=== PATIENT | male | born 1965 | race American Indian/Alaskan Native ===

== ENCOUNTER 2020-02-26 08:32 | Inpatient (IN) | payer OTHER ==
[2020-02-26 09:05] LABS: Basophils % (Auto) 0.6 % (0.0-1.8); Eosinophils # (Auto) 0.1 K/mm3 (0.0-0.4); Eosinophils % (Auto) 1.3 % (0.0-4.3); Hematocrit 44.1 % (35.5-45.6); Hemoglobin 14.7 gm/dl (11.8-15.2); Lymphocytes # (Auto) 1.7 K/mm3 (1.2-5.4); Lymphocytes % (Auto) 40.2 % (13.4-35.0); Mean Corpuscular HGB Conc 33 % (32-34); Mean Corpuscular Volume 86 fl (84-94); Monocytes # (Auto) 0.4 K/mm3 (0.0-0.8); Monocytes % (Auto) 10.6 % (0.0-7.3); Platelet Count 229 K/mm3 (140-440); Red Blood Count 5.14 M/mm3 (3.65-5.03); Red Cell Distribution Width 13.6 % (13.2-15.2)
[2020-02-26 09:14] LABS: INR 1.06 (0.87-1.13)
[2020-02-26 09:15] LABS: Partial Thromboplastin Time 27.5 Sec. (24.2-36.6)
[2020-02-26 09:38] LABS: BUN/Creatinine Ratio 9; Blood Urea Nitrogen 7 mg/dL (9-20); Calcium 9.2 mg/dL (8.4-10.2); Hemolysis Index 99
[2020-02-26] MEDS ORDERED: SODIUM CHLORIDE 0.9% 500 ML 500 ML ONE (09:46)
[2020-02-26] MEDS ORDERED: SODIUM CHLORIDE 0.9% 500 ML 500 ML IV SCH (10:00)
[2020-02-26] MEDS ORDERED: HEPARIN/NS 5000 UNIT/500ML 1,000 ML IR ONE (10:51)
[2020-02-26] MEDS ORDERED: LIDOCAINE 1%/EPINEPHRINE 1:100,000 VIAL (20 ML) INFILTRATI ONE (10:52)
[2020-02-26] MEDS ORDERED: SODIUM CHLORIDE 0.9% 500 ML 0 ML ONE (10:52)
--- NOTE | 2020-02-26 11:17 | Short Stay Summary ---
<TREVER JO - Last Filed: 02/26/20 11:15> Short Stay Documentation Date of service: 02/26/20 Narrative H&P: 54 year old male with history of traumatic injury to the right lower extremity with forklift injury requiring femoral-tibioperoneal trunk bypass. Bypass thrombosed and patient presented with 2 weeks of very short distance claudication. R/B/A discussed for thrombectomy/thrombolysis/recannalization. - History Principal diagnosis: Arterial thrombosis H&P: obtained from office - Allergies and Medications Current Medications: Allergies No Known Allergies Allergy (Unverified 02/26/20 08:13) Home Medications Medication Instructions Recorded Confirmed Last Taken Type Apixaban [Eliquis] 2.5 mg PO BID 02/26/20 02/26/20 02/23/20 History 2.5mg Celecoxib [celeBREX] 200 mg PO BID 02/26/20 02/26/20 01/26/20 History 200 mg Clopidogrel [Plavix] 75 mg PO QDAY 02/26/20 02/26/20 02/26/20 06:30 History Gabapentin [Neurontin] 1 tab PO TID PRN 02/26/20 02/26/20 01/27/20 History 600 mg Pantoprazole [Protonix TAB] 20 mg QDAY 02/26/20 02/26/20 02/26/20 06:30 History traMADoL [Ultram] 100 mg PO TID PRN 02/26/20 02/26/20 01/26/20 History 100 mg Active Medications Sodium Chloride (Nacl 0.9% 500 Ml) 500 mls @ 50 mls/hr IV DIRECT [facility]AS Last Admin: 02/26/20 10:04 Dose: 50 mls/hr Documented by: - Physical exam General appearance: mild distress (very short distance claudication (5 steps, near rest pain)) Lungs: Normal air movement Heart: Regular rate Gastrointestinal: normal Extremities: abnormal (cool right lower extremity with fasciotomy scars.) - Brief post op/procedure progress note Date of procedure: 02/26/20 Pre-op diagnosis: Thombosis of the right femoral-tibioperoneal bypass Post-op diagnosis: same - Disposition Condition at discharge: Stable Disposition: [id number] TO HOME OR SELFCARE Short Stay Discharge Plan Follow up with: TREVER JO MD [Staff Physician] - 14 Days Prescriptions: Apixaban [Eliquis] 5 mg PO BID #60 tablet Insulin NPH Hum/Reg Insulin Hm [Novolin 70-30 Flexpen] 8 unit SQ TIDAC #1 insuln.pen cilostazoL [Pletal] 100 mg PO BID #60 tablet <JOSE L YAO - Last Filed: 02/28/20 11:38> Short Stay Documentation - Allergies and Medications Current Medications: Allergies No Known Allergies Allergy (Unverified 02/26/20 08:13) Home Medications Medication Instructions Recorded Confirmed Last Taken Type Apixaban [Eliquis] 2.5 mg PO BID 02/26/20 02/26/20 02/23/20 History 2.5mg Celecoxib [celeBREX] 200 mg PO BID 02/26/20 02/26/20 01/26/20 History 200 mg Clopidogrel [Plavix] 75 mg PO QDAY 02/26/20 02/26/20 02/26/20 06:30 History Gabapentin [Neurontin] 1 tab PO TID PRN 02/26/20 02/26/20 01/27/20 History 600 mg Pantoprazole [Protonix TAB] 20 mg QDAY 02/26/20 02/26/20 02/26/20 06:30 History traMADoL [Ultram] 100 mg PO TID PRN 02/26/20 02/26/20 01/26/20 History 100 mg Apixaban [Eliquis] 5 mg PO BID #60 tablet 02/27/20 Unknown Rx Insulin NPH Hum/Reg Insulin Hm 8 unit SQ TIDAC #1 insuln.pen 02/27/20 Unknown Rx [Novolin 70-30 Flexpen] cilostazoL [Pletal] 100 mg PO BID #60 tablet 02/27/20 Unknown Rx Active Medications Acetaminophen (Tylenol) 650 mg PO Q4H PRN PRN Reason: Pain MILD(1-3)/Fever >100.5/BARRETT Hydrocodone Bitart/Acetaminophen ([place] 5/325) 2 each PO Q6H PRN PRN Reason: Pain, Moderate (4-6) Last Admin: 02/27/20 04:23 Dose: 2 each Documented by: Hydrocodone Bitart/Acetaminophen ([place] 5/325) 1 each PO Q6H PRN PRN Reason: Pain, Mild (1-3) Apixaban (Eliquis) 5 mg PO Q12HR [facility]; Protocol Cilostazol (Pletal) 100 mg PO BID [facility] Last Admin: 02/28/20 09:28 Dose: 100 mg Documented by: Clopidogrel Bisulfate (Plavix) 75 mg PO QDAY [facility] Last Admin: 02/28/20 10:08 Dose: 75 mg Documented by: Dextrose (D50w (25gm) Syringe) 0 ml IV Q30MIN PRN; Protocol PRN Reason: Hypoglycemia Diphenhydramine HCl (Benadryl) 25 mg IV Q4H PRN PRN Reason: Itching Last Admin: 02/26/20 23:52 Dose: 25 mg Documented by: Docusate Sodium (Colace) 100 mg PO BID [facility] Last Admin: 02/28/20 09:28 Dose: 100 mg Documented by: Gabapentin (Gabapentin) 600 mg PO TID PRN PRN Reason: Pain , Severe (7-10) Hydralazine HCl (Apresoline) 20 mg IV Q8HR PRN PRN Reason: Hypertension Hydromorphone HCl (Dilaudid) 0.5 mg IV Q3H PRN PRN Reason: Pain , Severe (7-10) Last Admin: 02/26/20 23:52 Dose: 0.5 mg Documented by: Sodium Chloride (Nacl 0.9% 500 Ml) 500 mls @ 50 mls/hr IV DIRECT [facility]AS Last Admin: 02/26/20 10:04 Dose: 50 mls/hr Documented by: Sodium Chloride (Nacl 0.9% 1000 Ml) 1,000 mls @ 30 mls/hr IV DIRECT [facility]AS Heparin Sodium/Sodium Chloride (Heparin/ 0.45% Nacl-25,000 Unit/500 Ml) 25,000 unit in 500 mls @ 30 mls/hr IV TITR [facility]; Protocol Last Titration: 02/27/20 20:45 Dose: 1,500 units/hr, 30 mls/hr Documented by: Insulin Human Lispro (Humalog) 0 unit SUB-Q ACHS [facility]; Protocol Last Admin: 02/28/20 08:02 Dose: 2 unit Documented by: Morphine Sulfate (Morphine) 2 mg IV Q4H PRN PRN Reason: Pain, Moderate (4-6) Last Admin: 02/27/20 18:43 Dose: 2 mg Documented by: Ondansetron HCl (Zofran) 4 mg IV Q8H PRN PRN Reason: Nausea Pantoprazole Sodium (Protonix) 20 mg PO QDAY [facility] Last Admin: 02/28/20 09:28 Dose: 20 mg Documented by: Sodium Chloride (Sodium Chloride Flush Syringe 10 Ml) 10 ml IV BID [facility] Last Admin: 02/28/20 09:29 Dose: 10 ml Documented by: Sodium Chloride (Sodium Chloride Flush Syringe 10 Ml) 10 ml IV PRN PRN PRN Reason: LINE FLUSH Short Stay Discharge Plan Activity: other (No strenuous activity for 24 hours) Wound: remove dressing (24 hours), other (Once the dressing is removed it is okay to wash the left groin wound with soap and water but do not soak in water for 2 weeks.)
[2020-02-26] MEDS: fentaNYL 100 MCG/2 ML INJ ONE ×2 (11:35→11:44)
[2020-02-26] MEDS: MIDAZOLAM 2 MG/2 ML INJ ONE ×2 (11:35→11:44)
[2020-02-26] MEDS ORDERED: fentaNYL 100 MCG/2 ML INJ ONE (11:46)
[2020-02-26] MEDS ORDERED: diphenhydrAMINE 50 MG/ML VIAL ONE ×2 (11:46→16:25)
[2020-02-26] MEDS ORDERED: MIDAZOLAM 2 MG/2 ML INJ ONE (11:46)
[2020-02-26] MEDS: HEPARIN 10,000 UNITS/10 ML VIAL ONE ×2 (11:55→12:15)
[2020-02-26] MEDS ORDERED: WATER FOR INJ Sterile (PF) 10 ML ONE (12:09)
[2020-02-26] MEDS ORDERED: ALTEPLASE 2 MG INJ ONE (12:10)
[2020-02-26] MEDS ORDERED: SODIUM CHLORIDE 0.9% 1000 ML 1,000 ML IV SCH (12:15)
[2020-02-26] MEDS ORDERED: SODIUM CHLORIDE 0.9% 1000 ML 1,000 ML EKOSCLUMEN SCH (12:15)
[2020-02-26] MEDS ORDERED: SODIUM CHLORIDE 0.9% 1000 ML 1,000 ML SHEATH SCH (12:15)
[2020-02-26] MEDS ORDERED: HEPARIN/ 0.45% NACL DRIP 25,000 UNIT/500 ML BAG ONE (12:17)
[2020-02-26] MEDS ORDERED: SODIUM CHLORIDE 0.9% 1000 ML 1,000 ML ONE (12:17)
[2020-02-26] MEDS ORDERED: MORPHINE 4 MG/1 ML INJ IV PRN (12:23)
[2020-02-26] MEDS ORDERED: ONDANSETRON 4 MG/2 ML INJ IV PRN ×2 (12:23→13:00)
[2020-02-26] MEDS ORDERED: HYDROcodone/ACETAMINOPHEN 5-325 MG TAB PO PRN ×2 (12:23→13:00)
[2020-02-26] MEDS ORDERED: ACETAMINOPHEN 325 MG TAB PO PRN ×2 (12:23→13:00)
[2020-02-26] MEDS ORDERED: ALTEPLASE 20 MG in SODIUM CHLORIDE 0.9% 500 ML 500 ML EKOSDLUMEN SCH (12:30)
[2020-02-26] MEDS ORDERED: traMADol 50 MG TAB PO PRN (12:31)
--- NOTE | 2020-02-26 12:49 | Event Note ---
Date: 02/26/20 H&P on chart from office.
--- NOTE | 2020-02-26 12:52 | Operative Report ---
Operative Report Operative Report: EXAM: 1. Ultrasound guided access of the left common femoral artery 2. Angiography of the left lower extremity 3. Selection of the abdominal aorta with angiography 4. Third order selection of the right superficial femoral artery and above with angiography 5. Selection of the right tibioperoneal trunk, peroneal artery, and posterior tibial artery with angiography 6. Fluoroscopic guided placement of a 30 cm x 136 cm EKOS thrombolytic catheter across the right femoral-tibioperoneal trunk bypass graft DATE: 02/26/2020 BURIAL AGENT: TREVER JO MD INDICATION: Thrombosed right femoral distal bypass graft with development of extremely short distance claudication/near rest pain equivalent who presents for treatment. MEDICATIONS: Please see nursing report for full details. DEVICES: 30 cm x 136 cm EKOS thrombolytic catheter CONTRAST: Please see catheter report for full details. PROCEDURE: The risks, benefits, and alternatives were discussed with the patient; written informed consent was obtained. Ultrasound was used to evaluate the left common femoral artery which was patent. Under direct ultrasound guidance, the left common femoral artery was accessed with a 21-gauge micropuncture needle. 0.018 inch wire was passed into the needle and into the aorta. Needle was exchanged for transitional dilator. Wire was exchanged for 0.035 inch wire. Transitional dilator was exchanged for a 5 [place] sheath. Digital subtraction angiography was performed demonstrating an appropriate puncture when accounting for patient's body habitus, above the bifurcation, and below the inferior epigastric artery. The left common femoral artery, profundofemoral artery, superficial femoral artery and external iliac artery were patent. The abdominal aorta was selected and digital subtraction angiography was performed demonstrating patency of the bilateral common iliac arteries, internal iliac arteries, external iliac arteries, and abdominal aorta. The right external iliac artery was selected and the right superficial femoral artery was selected and digital subtraction angiography was performed de monstrating patency of the right common femoral artery, profundofemoral artery, and right proximal and mid superficial femoral artery. The distal most superficial femoral artery was occluded with thrombus in the femoral tibial peroneal trunk bypass was occluded. The [place] popliteal artery had intermittent areas of flow. The tibioperoneal trunk was patent. The posterior tibial artery and peroneal artery were patent with sluggish flow. The distal peroneal artery provided flow into the dorsalis pedis through the anterior communicating artery at the level of the ankle. Anterior tibial artery had poor flow within it. The patient was heparinized. Sheath was exchanged for 6 [place] 45 cm [place] destination positioned in the right proximal superficial femoral artery. Angled catheter and wire were used to cross the femoral distal bypass into the tibioperoneal trunk and digital subtraction angiography was performed confirming position. The posterior tibial artery was selected and digital subtraction angiography was performed confirming the above-mentioned findings. The peroneal artery was selected and digital subtraction angiography was performed confirming the above-mentioned findings. 0.035 inch wire was passed into the peroneal artery and the catheter was then exchanged for a thrombolytic catheter as referenced above. 4 mg of TPA was used to prime the catheter. 1500 units of heparin was used to prime the sheath. The catheter and sheath were then secured to the patient with 2-0 Ethilon, and a pressure dressing was created. Thrombolytic catheter was then connected to the EKOS thrombolytic unit. Patient tolerated the procedure well. No immediate postprocedural complications. FINDINGS: Please see procedure note above. IMPRESSION: Successful placement of thrombolytic catheter for overnight thrombolysis. Patient will be brought back tomorrow to the Investment Strategist.
--- NOTE | 2020-02-26 12:52 | Post Operative Note ---
Date of procedure: 02/26/20 Pre-op diagnosis: Thrombosed RLE bypass graft Post-op diagnosis: same Findings: Thrombosed right distal SFA to tibioperoneal trunk bypass graft. Procedure: 1. Ultrasound guided access of the left common femoral artery 2. Angiography of the left lower extremity 3. Selection of the abdominal aorta with angiography 4. Third order selection of the right superficial femoral artery and above with angiography 5. Selection of the right tibioperoneal trunk, peroneal artery, and posterior tibial artery with angiography 6. Fluoroscopic guided placement of a 30 cm x 136 cm EKOS thrombolytic catheter across the right femoral-tibioperoneal trunk bypass graft Anesthesia: local (w/ conscious sedation) Surgeon: TREVER JO Estimated blood loss: minimal Condition: stable Disposition: ICU
[2020-02-26] MEDS ORDERED: HEPARIN/ 0.45% NACL DRIP 25,000 UNIT/500 ML BAG SHEATH SCH (13:00)
[2020-02-26] MEDS ORDERED: MORPHINE 2 MG/1 ML INJ IV PRN (13:00)
[2020-02-26] MEDS ORDERED: GABAPENTIN 300 MG CAP PO PRN (14:00)
[2020-02-26] MEDS: PANTOPRAZOLE 20 MG TAB PO SCH (14:11)
[2020-02-26] MEDS ORDERED: HYDROcodone/ACETAMINOPHEN 5-325 MG TAB ONE (14:21)
[2020-02-26] MEDS: HYDROcodone/ACETAMINOPHEN 5-325 MG TAB PO PRN ×2 (14:24→20:52)
[2020-02-26] MEDS ORDERED: HYDROmorphone 1 MG/1 ML INJ ONE ×2 (14:47→18:01)
[2020-02-26] MEDS: HYDROmorphone 1 MG/1 ML INJ IV PRN ×3 (14:58→23:52)
[2020-02-26] MEDS: diphenhydrAMINE 50 MG/ML VIAL IV PRN ×2 (16:33→23:52)
[2020-02-26] MEDS: DOCUSATE SODIUM 100 MG CAP PO SCH ×2 (20:24→21:13)
[2020-02-26 21:11] LABS: Hematocrit 44.7 % (35.5-45.6); Hemoglobin 14.8 gm/dl (11.8-15.2); Mean Corpuscular HGB Conc 33 % (32-34); Mean Corpuscular Volume 88 fl (84-94); Platelet Count 215 K/mm3 (140-440); Red Blood Count 5.07 M/mm3 (3.65-5.03); Red Cell Distribution Width 13.7 % (13.2-15.2)
[2020-02-26 21:17] LABS: INR 1.14 (0.87-1.13)
[2020-02-26 21:28] LABS: BUN/Creatinine Ratio 9; Blood Urea Nitrogen 7 mg/dL (9-20); Calcium 8.9 mg/dL (8.4-10.2); Hemolysis Index 11
[2020-02-26] MEDS ORDERED: DEXTROSE 50% IN WATER (25GM) 50 ML SYRINGE IV PRN (23:13)
[2020-02-26 23:14] LABS: Basophils % (Manual) 0 % (0.0-1.8); Eosinophils % (Manual) 0 % (0.0-4.3); Total Cells Counted 100
[2020-02-26 23:15] LABS: Platelet Estimate Consistent w Auto; RBC Morphology Normal
[2020-02-27 00:02] LABS: Basophils % (Auto) 0.5 % (0.0-1.8); Eosinophils % (Auto) 0.6 % (0.0-4.3); Hemoglobin 13.9 gm/dl (11.8-15.2); Lymphocytes # (Auto) 1.8 K/mm3 (1.2-5.4); Lymphocytes % (Auto) 27.8 % (13.4-35.0); Mean Corpuscular HGB Conc 33 % (32-34); Mean Corpuscular Volume 87 fl (84-94); Monocytes # (Auto) 0.5 K/mm3 (0.0-0.8); Monocytes % (Auto) 8.2 % (0.0-7.3); Platelet Count 216 K/mm3 (140-440); Red Blood Count 4.83 M/mm3 (3.65-5.03); Red Cell Distribution Width 13.8 % (13.2-15.2)
[2020-02-27] MEDS: HYDROcodone/ACETAMINOPHEN 5-325 MG TAB PO PRN (04:23)
[2020-02-27 05:39] LABS: Basophils % (Auto) 0.4 % (0.0-1.8); Eosinophils # (Auto) 0.1 K/mm3 (0.0-0.4); Eosinophils % (Auto) 1.3 % (0.0-4.3); Hematocrit 42.7 % (35.5-45.6); Mean Corpuscular HGB Conc 33 % (32-34); Mean Corpuscular Volume 87 fl (84-94); Monocytes # (Auto) 0.5 K/mm3 (0.0-0.8); Monocytes % (Auto) 9.8 % (0.0-7.3); Platelet Count 206 K/mm3 (140-440); Red Blood Count 4.92 M/mm3 (3.65-5.03); Red Cell Distribution Width 13.6 % (13.2-15.2)
[2020-02-27 05:53] LABS: BUN/Creatinine Ratio 8; Blood Urea Nitrogen 7 mg/dL (9-20); Calcium 8.7 mg/dL (8.4-10.2); Hemolysis Index 5
[2020-02-27] MEDS ORDERED: INSULIN LISPRO 100 UNIT/ML VIAL 3 mL SUB-Q SCH (07:30)
[2020-02-27] MEDS: INSULIN LISPRO 100 UNIT/ML VIAL 3 mL SUB-Q SCH ×4 (07:40→21:14)
[2020-02-27] MEDS ORDERED: SODIUM CHLORIDE 0.9% 250ML 250 ML ONE (08:13)
[2020-02-27] MEDS ORDERED: LIDOCAINE 1%/EPINEPHRINE 1:100,000 VIAL (20 ML) INFILTRATI ONE ×2 (08:14→09:35)
[2020-02-27] MEDS ORDERED: HEPARIN/NS 5000 UNIT/500ML 1,000 ML IR ONE (08:14)
[2020-02-27] MEDS ORDERED: fentaNYL 100 MCG/2 ML INJ ONE ×3 (08:15→09:40)
[2020-02-27] MEDS: MIDAZOLAM 2 MG/2 ML INJ ONE ×2 (08:34→09:09)
[2020-02-27] MEDS: fentaNYL 100 MCG/2 ML INJ ONE (08:34)
[2020-02-27] MEDS: HEPARIN 10,000 UNITS/10 ML VIAL ONE ×3 (08:35→08:50)
[2020-02-27] MEDS ORDERED: ceFAZolin/Water 2 GM/20 ML 2 GM/20 ML SYRINGE IV ONE (08:54)
[2020-02-27] MEDS ORDERED: hydrALAZINE 20 MG/1 ML INJ ONE (08:58)
[2020-02-27] MEDS ORDERED: MIDAZOLAM 2 MG/2 ML INJ ONE ×2 (09:27→09:40)
[2020-02-27] MEDS ORDERED: diphenhydrAMINE 50 MG/ML VIAL ONE (10:03)
--- NOTE | 2020-02-27 10:32 | Operative Report ---
Operative Report Operative Report: EXAM: 1. Removal of arterial thrombolytic catheter from the right lower extremity 2. Angiography of the right lower extremity 3. Selection of the peroneal artery with angiography of the right lower extremity 4. Fluoroscopic guided placement of a 6 mm spider EPD in the right tibioperoneal trunk 5. Angioplasty of the right tibioperoneal trunk with a 5 mm x 100 mm angiosculpt balloon, 5 mm x 40 mm pepito balloon and 5 mm x 80 mm iNPACT balloon 6. Angioplasty of the right distal superficial femoral artery with a 7 mm x 40 mm angioscupt balloon 7. Capture of the embolic protection device 8. Angioplasty of the tibioperoneal trunk with a 5 mm x 40 mm pepito angioplasty balloon 9. Closure of the left common femoral artery with a 6 Fr proglide DATE: 02/27/2020 [employer]ACE OPERATIONS: TREVER JO MD INDICATION: Next day after thrombolytic catheter placement for femoral tibioperoneal trunk bypass occlusion. MEDICATIONS: Please see nursing report for full details. DEVICES: 5 mm x 100 mm angiosculpt 5 mm x 40 mm Pepito angioplasty balloon 5 mm x 80 mm iNPACT balloon 7 mm x 40 mm angiosculpt 6 mm spider embolic protection device CONTRAST: Please see Welfare Manager report for full details PROCEDURE: The risks, benefits, and alternatives were discussed with the patient; written informed consent was obtained. The patient was transferred from the ICU to the angiography suite in stable condition. The left groin and thrombolytic catheter was prepped and draped in sterile fashion. Fluoroscopy was used and the catheter was in unchanged position. Thrombolytic catheter was removed over a wire and digital subtraction angiography was performed after selection of the tibioperoneal trunk demonstrating patency of the posterior tibial artery and peroneal artery with flow into the dorsalis pedis through the anterior communicating artery. Digital subtraction angiography was performed through the sheath demonstrating patency of the proximal and mid superficial femoral artery with resolution of thrombus in the distal superficial femoral artery with a 40% narrowing at the distal superficial femoral artery as it enters the bypass. The bypass is patent except for the distalmost portion of the bypass which has a minimal amount of residual clot. The tibioperoneal trunk has a 40% to 50% narrowing as the bypass enters it. The outflow of the tibioperoneal trunk is patent as described above. There are islands of popliteal artery which are still patent with areas of occlusion. Anterior tibial artery has minimal flow within it. 6 mm spider embolic protection device was deployed in the distal tibioperoneal trunk. 5 mm x 100 mm cutting balloon was used to perform cutting angioplasty of the proximal tibioperoneal trunk and distal portion of the bypass. This was then followed with a 5 x 40 mm angioplasty balloon to perform angioplasty of the tibioperoneal trunk. Then a 5 mm x 80 mm iNPACT balloon was used to perform angioplasty of this area. 7 mm x 40 mm cutting balloon was used to perform angioplasty of the distal superficial femoral artery. Digital subtraction angiography demonstrated sluggish flow in the peroneal artery with patency of the rest of the vessel due to debris in the embolic protection device. The embolic protection device was retrieved and the sheath hub was then removed and flushed. Repeat angiography was performed. Digital subtraction angiography was performed demonstrating patency of the distal superficial femoral artery, distal femoral to tibioperoneal trunk bypass, and proximal tibioperoneal trunk. There is a tiny dissection flap in the midportion of the tibioperoneal trunk which was not flow-limiting. The outflow into the peroneal artery and posterior tibial artery are widely patent with the vessels widely patent. 5 mm x 40 mm angioplasty balloon was used to perform angioplasty of the midportion of the tibial peroneal trunk for 4 minutes. Digital subtraction angiography demonstrated near resolution of the tiny dissection flap which was not flow-limiting. At this point, all wires, catheters, and sheaths were retracted to the left external iliac artery. Digital subtraction angiography was performed demonstrating, an appropriate puncture, immediately above the bifurcation and below the inferior epigastric artery. Levy wire was then passed into the abdominal aorta and the sheath was exchanged for a 6 Korean pro glide which was then used to close the arteriotomy achieving immediate hemostasis. Sterile dressing applied. Pressure dressing applied. Patient tolerated the procedure well. No immediate postprocedural complication. FINDINGS: Please see procedure note above. IMPRESSION: 1. Successful thrombolytic catheter removal of the right lower extremity arterial system. 2. Successful angioplasty of the distal superficial femoral artery. 3. Successful angioplasty of the tibioperoneal trunk.
--- NOTE | 2020-02-27 10:35 | Event Note ---
Date: 02/27/20 Patient underwent successful thrombolysis overnight and required angioplasty/treatment of the distal superficial femoral artery and tibioperoneal trunk. His right lower extremity is warm, well-perfused, with a palpable dorsalis pedis and posterior tibial pulse. Pressure dressing applied to the left common femoral artery after successful closure. Resume heparin drip until tomorrow at which point patient can be converted to Eliquis 5 mg p.o. twice daily. Restarting Plavix today. On Protonix. Starting cilostazol today to assist with secondary patency. Can remove pressure dressing tomorrow morning. Ordered hemoglobin A1c due to elevated blood sugar which demonstrated hemoglobin A1c of 11.5. Patient has diabetes. Explained this to patient. He will need some diabetic regimen. Appreciate medical assistance.
[2020-02-27] MEDS: DOCUSATE SODIUM 100 MG CAP PO SCH ×2 (10:49→21:10)
[2020-02-27] MEDS: PANTOPRAZOLE 20 MG TAB PO SCH (10:49)
[2020-02-27] MEDS ORDERED: HEPARIN/ 0.45% NACL DRIP 25,000 UNIT/500 ML BAG IV SCH (11:00)
[2020-02-27] MEDS ORDERED: CLOPIDOGREL 75 MG TAB PO ONE (11:00)
[2020-02-27] MEDS ORDERED: CLOPIDOGREL 75 MG TAB PO SCH (11:00)
[2020-02-27] MEDS: CILOSTAZOL 100 MG TAB PO SCH ×2 (12:04→21:10)
--- NOTE | 2020-02-27 12:18 | Consultation ---
History of Present Illness - Reason for Consult Consult date: 02/26/20 Medical Management Requesting physician: TREVER JO - History of Present Illness 54 YO Male with PVD, Obesity, GERD admitted for elective vascular surgical procedure. Consult placed by Dr. Jo for medical management. Patient seen and evaluated in his room. Patient resting comfortably. Patient denies fever, chills, chest pain, palpitations, productive cough, skin rash, recent ill contacts, or known exposure to COVID-19. No reported nursing events. Past History Past Medical History: other (See HPI) Past Surgical History: Other (Vascular bypass surgery) Social history: , smoking. denies: alcohol abuse, prescription drug abuse Family history: hypertension Medications and Allergies Allergies Allergy/AdvReac Type Severity Reaction Status Date / Time No Known Allergies Allergy Unverified 02/26/20 08:13 Home Medications Medication Instructions Recorded Confirmed Last Taken Type Apixaban [Eliquis] 2.5 mg PO BID 02/26/20 02/26/20 02/23/20 History 2.5mg Celecoxib [celeBREX] 200 mg PO BID 02/26/20 02/26/20 01/26/20 History 200 mg Clopidogrel [Plavix] 75 mg PO QDAY 02/26/20 02/26/20 02/26/20 06:30 History Gabapentin [Neurontin] 1 tab PO TID PRN 02/26/20 02/26/20 01/27/20 History 600 mg Pantoprazole [Protonix TAB] 20 mg QDAY 02/26/20 02/26/20 02/26/20 06:30 History traMADoL [Ultram] 100 mg PO TID PRN 02/26/20 02/26/20 01/26/20 History 100 mg Apixaban [Eliquis] 5 mg PO BID #60 tablet 02/27/20 Unknown Rx cilostazoL [Pletal] 100 mg PO BID #60 tablet 02/27/20 Unknown Rx Active Meds: Active Medications Acetaminophen (Tylenol) 650 mg PO Q4H PRN PRN Reason: Pain MILD(1-3)/Fever >100.5/BARRETT Hydrocodone Bitart/Acetaminophen ([place] 5/325) 2 each PO Q6H PRN PRN Reason: Pain, Moderate (4-6) Last Admin: 02/27/20 04:23 Dose: 2 each Documented by: Hydrocodone Bitart/Acetaminophen ([place] 5/325) 1 each PO Q6H PRN PRN Reason: Pain, Mild (1-3) Cilostazol (Pletal) 100 mg PO BID [facility] Last Admin: 02/27/20 12:04 Dose: 100 mg Documented by: Clopidogrel Bisulfate (Plavix) 75 mg PO QDAY [facility] Dextrose (D50w (25gm) Syringe) 0 ml IV Q30MIN PRN; Protocol PRN Reason: Hypoglycemia Diphenhydramine HCl (Benadryl) 25 mg IV Q4H PRN PRN Reason: Itching Last Admin: 02/26/20 23:52 Dose: 25 mg Documented by: Docusate Sodium (Colace) 100 mg PO BID [facility] Last Admin: 02/27/20 10:49 Dose: 100 mg Documented by: Gabapentin (Gabapentin) 600 mg PO TID PRN PRN Reason: Pain , Severe (7-10) Hydromorphone HCl (Dilaudid) 0.5 mg IV Q3H PRN PRN Reason: Pain , Severe (7-10) Last Admin: 02/26/20 23:52 Dose: 0.5 mg Documented by: Sodium Chloride (Nacl 0.9% 500 Ml) 500 mls @ 50 mls/hr IV DIRECT CHAS Last Admin: 02/26/20 10:04 Dose: 50 mls/hr Documented by: Sodium Chloride (Nacl 0.9% 1000 Ml) 1,000 mls @ 30 mls/hr IV DIRECT CHAS Heparin Sodium/Sodium Chloride (Heparin/ 0.45% Nacl-25,000 Unit/500 Ml) 25,000 unit in 500 mls @ 30 mls/hr IV TITR CHAS; Protocol Last Admin: 02/27/20 10:47 Dose: 1,500 units/hr, 30 mls/hr Documented by: Insulin Human Lispro (Humalog) 0 unit SUB-Q ACHS [facility]; Protocol Morphine Sulfate (Morphine) 2 mg IV Q4H PRN PRN Reason: Pain, Moderate (4-6) Ondansetron HCl (Zofran) 4 mg IV Q8H PRN PRN Reason: Nausea Pantoprazole Sodium (Protonix) 20 mg PO QDAY [facility] Last Admin: 02/27/20 10:49 Dose: 20 mg Documented by: Sodium Chloride (Sodium Chloride Flush Syringe 10 Ml) 10 ml IV BID [facility] Last Admin: 02/27/20 10:51 Dose: 10 ml Documented by: Sodium Chloride (Sodium Chloride Flush Syringe 10 Ml) 10 ml IV PRN PRN PRN Reason: LINE FLUSH Review of Systems Constitutional: no weight loss, no weight gain, no chills, no sweats Ears, nose, mouth and throat: no ear pain, no tinnitis, no decreased hearing, no nose pain, no nasal congestion Cardiovascular: no chest pain, no orthopnea, no rapid/irregular heart beat, no edema, no syncope Respiratory: no cough, no excessive sputum, no hemoptysis Gastrointestinal: no nausea, no vomiting, no diarrhea, no constipation, no change in bowel habits Genitourinary Male: no hematuria, no flank pain, no urinary frequency, no urinary hesitancy Rectal: no pain, no incontinence, no bleeding Musculoskeletal: no neck stiffness, no shooting arm pain, no arm numbness/tingling, no shooting leg pain, no leg numbness/tingling Integumentary: no rash, no pruritis, no redness, no sores, no wounds Neurological: no head injury, no transient paralysis, no weakness, no parathesias, no numbness, no tingling, no seizures Psychiatric: no anxiety, no memory loss, no sleep disturbances, no insomnia, no hypersomnia, no change in libido, no suicidal ideation Endocrine: no cold intolerance, no polyphagia, no excessive thirst, no polyuria Hematologic/Lymphatic: no easy bruising, no easy bleeding Allergic/Immunologic: no urticaria, no allergic rhinitis Exam - Constitutional Vitals: Temp Pulse Resp BP Pulse Ox 97.8 F 65 15 154/87 98 02/27/20 08:00 02/27/20 06:30 02/27/20 06:30 02/27/20 06:30 02/27/20 06:30 General appearance: Present: no acute distress, well-nourished - EENT Eyes: Present: PERRL ENT: hearing intact, clear oral mucosa - Neck Neck: Present: supple, normal ROM - Respiratory Respiratory effort: normal Respiratory: bilateral: CTA - Cardiovascular Heart Sounds: Present: S1 & S2. Absent: rub, click - Extremities Extremities: pulses symmetrical, No edema Peripheral Pulses: within normal limits - Abdominal General gastrointestinal: Present: soft, non-tender, non-distended, normal bowel sounds Male genitourinary: Present: normal - Integumentary Integumentary: Present: clear, warm, dry - Musculoskeletal Musculoskeletal: gait normal, strength equal bilaterally - Psychiatric Psychiatric: appropriate mood/affect, intact judgment & insight - Neurologic Neurologic: CNII-XII intact, moves all extremities Results - Labs CBC & Chem 7: 02/27/20 13:41 02/27/20 05:25 Labs: Abnormal lab results 02/26/20 02/26/20 02/26/20 Range/Units 19:20 20:30 20:30 RBC 5.07 H (3.65-5.03) M/mm3 Lymph % (Auto) (13.4-35.0) % [place] % (Auto) (0.0-7.3) % Seg Neuts % (Manual) 78.0 H (40.0-70.0) % INR 1.14 H (0.87-1.13) Fibrinogen (211-480) mg/dl Heparin Anti-Xa Level 0.10 L (0.3-0.7) U.I./ml BUN (9-20) mg/dL Glucose (75-100) mg/dL POC Glucose (70-105) mg/dL Hemoglobin A1c (4-6) % 02/26/20 02/26/20 02/26/20 Range/Units 20:30 23:30 23:30 RBC (3.65-5.03) M/mm3 Lymph % (Auto) (13.4-35.0) % [place] % (Auto) 8.2 H (0.0-7.3) % Seg Neuts % (Manual) (40.0-70.0) % INR (0.87-1.13) Fibrinogen (211-480) mg/dl Heparin Anti-Xa Level 0.10 L (0.3-0.7) U.I./ml BUN 7 L (9-20) mg/dL Glucose 331 H (75-100) mg/dL POC Glucose (70-105) mg/dL Hemoglobin A1c (4-6) % 02/26/20 02/27/20 02/27/20 Range/Units 23:30 00:53 05:25 RBC (3.65-5.03) M/mm3 Lymph % (Auto) (13.4-35.0) % [place] % (Auto) (0.0-7.3) % Seg Neuts % (Manual) (40.0-70.0) % INR (0.87-1.13) Fibrinogen 199 L (211-480) mg/dl Heparin Anti-Xa Level (0.3-0.7) U.I./ml BUN 7 L (9-20) mg/dL Glucose 224 H (75-100) mg/dL POC Glucose 254 H (70-105) mg/dL Hemoglobin A1c (4-6) % 02/27/20 02/27/20 02/27/20 Range/Units 05:25 05:25 05:25 RBC (3.65-5.03) M/mm3 Lymph % (Auto) 38.0 H (13.4-35.0) % [place] % (Auto) 9.8 H (0.0-7.3) % Seg Neuts % (Manual) (40.0-70.0) % INR (0.87-1.13) Fibrinogen 196 L (211-480) mg/dl Heparin Anti-Xa Level 0.10 L (0.3-0.7) U.I./ml BUN (9-20) mg/dL Glucose (75-100) mg/dL POC Glucose (70-105) mg/dL Hemoglobin A1c 11.5 H (4-6) % 02/27/20 Range/Units 05:42 RBC (3.65-5.03) M/mm3 Lymph % (Auto) (13.4-35.0) % [place] % (Auto) (0.0-7.3) % Seg Neuts % (Manual) (40.0-70.0) % INR (0.87-1.13) Fibrinogen (211-480) mg/dl Heparin Anti-Xa Level (0.3-0.7) U.I./ml BUN (9-20) mg/dL Glucose (75-100) mg/dL POC Glucose 210 H (70-105) mg/dL Hemoglobin A1c (4-6) % Assessment and Plan - Patient Problems (1) Peripheral vascular disease Current Visit: Yes Status: Acute Plan to address problem: Patient status post surgical intervention, continue supportive care. Resume anticoagulation as per primary team (2) Obesity (BMI 35.0-39.9 without comorbidity) Current Visit: Yes Status: Acute Plan to address problem: Balanced diet, increase physical activity at discharge. Pulmonary follow-up as outpatient for sleep study (3) Gastroesophageal reflux disease Current Visit: Yes Status: Acute Qualifiers: Esophagitis presence: without esophagitis Qualified Code(s): K21.9 - Gastro-esophageal reflux disease without esophagitis Plan to address problem: PPI therapy, supportive care
[2020-02-27] MEDS ORDERED: hydrALAZINE 20 MG/1 ML INJ IV PRN (12:19)
--- NOTE | 2020-02-27 14:21 | Discharge Summary ---
Providers - Providers Date of Admission: 02/26/20 12:23 Date of discharge: 02/28/20 Attending physician: TREVER JO 02/26/20 12:23 Consult to Physician [CONS] Routine Comment: Consulting Provider: URMILA REYES Physician Instructions: Reason For Exam: medical management 02/26/20 14:40 Consult to Physician [CONS] Routine Comment: Consulting Provider: HILLARY CRESPO Physician Instructions: Reason For Exam: Pt going to ICU Primary care physician: [employer] Hospitalization Reason for admission: Thrombosed right distal superficial femoral artery to tibioperoneal bypass Condition: Stable Procedures: EXAM: 1. Ultrasound guided access of the left common femoral artery 2. Angiography of the left lower extremity 3. Selection of the abdominal aorta with angiography 4. Third order selection of the right superficial femoral artery and above with angiography 5. Selection of the right tibioperoneal trunk, peroneal artery, and posterior tibial artery with angiography 6. Fluoroscopic guided placement of a 30 cm x 136 cm EKOS thrombolytic catheter across the right femoral-tibioperoneal trunk bypass graft DATE: 02/26/2020 RAW SAMPLER: TREVER JO MD INDICATION: Thrombosed right femoral distal bypass graft with development of extremely short distance claudication/near rest pain equivalent who presents for treatment. MEDICATIONS: Please see nursing report for full details. DEVICES: 30 cm x 136 cm EKOS thrombolytic catheter CONTRAST: Please see catheter report for full details. PROCEDURE: The risks, benefits, and alternatives were discussed with the patient; written informed consent was obtained. Ultrasound was used to evaluate the left common femoral artery which was patent. Under direct ultrasound guidance, the left common femoral artery was accessed with a 21-gauge micropuncture needle. 0.018 inch wire was passed into the needle and into the aorta. Needle was exchanged for transitional dilator. Wire was exchanged for 0.035 inch wire. Transitional dilator was exchanged for a 5 Romanian sheath. Digital subtraction angiography was performed demonstrating an appropriate puncture when accounting for patient's body habitus, above the bifurcation, and below the inferior epigastric artery. The left common femoral artery, profundofemoral artery, superficial femoral artery and external iliac artery were patent. The abdominal aorta was selected and digital subtraction angiography was performed demonstrating patency of the bilateral common iliac arteries, internal iliac arteries, external iliac arteries, and abdominal aorta. The right external iliac artery was selected and the right superficial femoral artery was selected and digital subtraction angiography was performed demonstrating patency of the right common femoral artery, profundofemoral artery, and right proximal and mid superficial femoral artery. The distal most superficial femoral artery was occluded with thrombus in the femoral tibial peroneal trunk bypass was occluded. The [place] popliteal artery had intermittent areas of flow. The tibioperoneal trunk was patent. The posterior tibial artery and peroneal artery were patent with sluggish flow. The distal peroneal artery provided flow into the dorsalis pedis through the anterior communicating artery at the level of the ankle. Anterior tibial artery had poor flow within it. The patient was heparinized. Sheath was exchanged for 6 Romanian 45 cm [place] destination positioned in the right proximal superficial femoral artery. Angled catheter and wire were used to cross the femoral distal bypass into the tibioperoneal trunk and digital subtraction angiography was performed confirming position. The posterior tibial artery was selected and digital subtraction angiography was performed confirming the above-mentioned findings. The peroneal artery was selected and digital subtraction angiography was performed confirmin g the above-mentioned findings. 0.035 inch wire was passed into the peroneal artery and the catheter was then exchanged for a thrombolytic catheter as referenced above. 4 mg of TPA was used to prime the catheter. 1500 units of heparin was used to prime the sheath. The catheter and sheath were then secured to the patient with 2-0 Ethilon, and a pressure dressing was created. Thrombolytic catheter was then connected to the EKOS thrombolytic unit. Patient tolerated the procedure well. No immediate postprocedural complications. FINDINGS: Please see procedure note above. IMPRESSION: Successful placement of thrombolytic catheter for overnight thrombolysis. Patient will be brought back tomorrow to the [facility] [employer]. EXAM: 1. Removal of arterial thrombolytic catheter from the right lower extremity 2. Angiography of the right lower extremity 3. Selection of the peroneal artery with angiography of the right lower extremity 4. Fluoroscopic guided placement of a 6 mm spider EPD in the right tibioperoneal trunk 5. Angioplasty of the right tibioperoneal trunk with a 5 mm x 100 mm angiosculpt balloon, 5 mm x 40 mm pepito balloon and 5 mm x 80 mm iNPACT balloon 6. Angioplasty of the right distal superficial femoral artery with a 7 mm x 40 mm angioscupt balloon 7. Capture of the embolic protection device 8. Angioplasty of the tibioperoneal trunk with a 5 mm x 40 mm pepito angio plasty balloon 9. Closure of the left common femoral artery with a 6 Fr proglide DATE: 02/27/2020 RAW SAMPLER: TREVER JO MD INDICATION: Next day after thrombolytic catheter placement for femoral t ibioperoneal trunk bypass occlusion. MEDICATIONS: Please see nursing report for full details. DEVICES: 5 mm x 100 mm angiosculpt 5 mm x 40 mm Pepito angioplasty balloon 5 mm x 80 mm iNPACT balloon 7 mm x 40 mm angiosculpt 6 mm spider embolic protection device CONTRAST: Please see [facility] [employer] report for full details PROCEDURE: The risks, benefits, and alternatives were discussed with the patient; written informed consent was obtained. The patient was transferred from the ICU to the angiography suite in stable condition. The left groin and thrombolytic catheter was prepped and draped in sterile fashion. Fluoroscopy was used and the catheter was in unchanged position. Thrombolytic catheter was removed over a wire and digital subtraction angiography was performed after selection of the tibioperoneal trunk demonstrating patency of the posterior tibial artery and peroneal artery with flow into the dorsalis pedis through the anterior communicating artery. Digital subtraction angiography was performed through the sheath demonstrating patency of the proximal and mid superficial femoral artery with resolution of thrombus in the distal superficial femoral artery with a 40% narrowing at the distal superficial femoral artery as it enters the bypass. The bypass is patent except for the distalmost portion of the bypass which has a minimal amount of residual clot. The tibioperoneal trunk has a 40% to 50% narrowing as the bypass enters it. The outflow of the tibioperoneal trunk is patent as described above. There are islands of popliteal artery which are still patent with areas of occlusion. Anterior tibial artery has minimal flow within it. 6 mm spider embolic protection device was deployed in the distal tibioperoneal trunk. 5 mm x 100 mm cutting balloon was used to perform cutting angioplasty of the proximal tibioperoneal trunk and distal portion of the bypass. This was then followed with a 5 x 40 mm angioplasty balloon to perform angioplasty of the tibioperoneal trunk. Then a 5 mm x 80 mm iNPACT balloon was used to perform angioplasty of this area. 7 mm x 40 mm cutting balloon was used to perform angioplasty of the distal superficial femoral artery. Digital subtraction angiography demonstrated sluggish flow in the peroneal artery with patency of the rest of the vessel due to debris in the embolic protection device. The embolic protection device was retrieved and the sheath hub was then removed and flushed. Repeat angiography was performed. Digital subtraction angiography was performed demonstrating patency of the distal superficial femoral artery, distal femoral to tibioperoneal trunk bypass, and proximal tibioperoneal trunk. There is a tiny dissection flap in the midportion of the tibioperoneal trunk which was not flow-limiting. The outflow into the peroneal artery and posterior tibial artery are widely patent with the vessels widely patent. 5 mm x 40 mm angioplasty balloon was used to perform angioplasty of the midportion of the tibial peroneal trunk for 4 minutes. Digital subtraction angiography demonstrated near resolution of the tiny dissection flap which was not flow-limiting. At this point, all wires, catheters, and sheaths were retracted to the left external iliac artery. Digital subtraction angiography was performed demonstrating, an appropriate puncture, immediately above the bifurcation and below the inferior epigastric artery. Levy wire was then passed into the abdominal aorta and the sheath was exchanged for a 6 Romanian pro glide which was then used to close the arteriotomy achieving immediate hemostasis. Sterile dressing applied. Pressure dressing applied. Patient tolerated the procedure well. No immediate postprocedural complication. FINDINGS: Please see procedure note above. IMPRESSION: 1. Successful thrombolytic catheter removal of the right lower extremity arterial system. 2. Successful angioplasty of the distal superficial femoral artery. 3. Successful angioplasty of the tibioperoneal trunk. Hospital course: 54-year-old male was brought to the [facility] of the hospital due to occlusion of his distal superficial femoral artery to tibial peroneal bypass with development of short distance claudication occurring at 5 steps which is a near rest pain equivalent. His right lower extremity was cool. No pulses in the right lower extremity. Patient was then brought to the [facility] [employer] [facility] where he is occluded bypass was noted and a thrombolytic catheter was placed across this bypass and he was allowed to thrombolysis overnight and was brought back to the [facility] [employer] the next morning where his bypass was evaluated, with good flow, and angioplasty was performed to improve flow. Patient's right lower extremity was well perfused, warm, with palpable pulses at the conclusion of the procedure. He was successfully closed with the proglide and sent back to the ICU to keep flat overnight. Patient will be started on full dose Eliquis with Plavix and cilostazol and Protonix. He may also require diabetic medications as during his admission he was found to have a hemoglobin A1c of 11.5 consistent with diabetes. This was explained to the patient. Disposition: DC-30 STILL A PATIENT Core Measure Documentation - Palliative Care Palliative Care/ Comfort Measures: Not Applicable - Core Measures Any of the following diagnoses?: none Exam - Constitutional Vitals: Temp Pulse Resp BP Pulse Ox 97.8 F 83 11 L 163/97 98 02/27/20 08:00 02/27/20 12:00 02/27/20 12:00 02/27/20 12:00 02/27/20 12:00 Plan Activity: advance as tolerated (Do not lift more than 10 pounds for 1 week) Weight Bearing Status: Weight Bear as Tolerated (Do not lift more than 10 pounds for 1 week) Diet: diabetic Wound: keep clean and dry (Keep the left groin clean and dry. Do not lift more than 10 pounds for 1 week.) Follow up with: PRIMARY CARE, [Primary Care Provider] - 7 Days Prescriptions: Apixaban [Eliquis] 5 mg PO BID #60 tablet cilostazoL [Pletal] 100 mg PO BID #60 tablet
[2020-02-27 14:46] LABS: Hemoglobin 15.3 gm/dl (11.8-15.2)
[2020-02-27 14:53] LABS: INR 1.14 (0.87-1.13)
[2020-02-27 15:02] LABS: Partial Thromboplastin Time 77.1 Sec. (24.2-36.6)
--- NOTE | 2020-02-27 15:04 | Progress Note ---
Assessment and Plan - Patient Problems (1) Peripheral vascular disease Current Visit: Yes Status: Acute Plan to address problem: Patient status post surgical intervention, continue supportive care. Resume anticoagulation as per primary team (2) Obesity (BMI 35.0-39.9 without comorbidity) Current Visit: Yes Status: Acute Plan to address problem: Balanced diet, increase physical activity at discharge. Pulmonary follow-up as outpatient for sleep study (3) Gastroesophageal reflux disease Current Visit: Yes Status: Acute Qualifiers: Esophagitis presence: without esophagitis Qualified Code(s): K21.9 - Gastro-esophageal reflux disease without esophagitis Plan to address problem: PPI therapy, supportive care History Interval history: 54 YO Male with PVD, Obesity, GERD admitted for elective vascular surgical procedure. . Patient resting comfortably. Patient denies fever, chills, leg pain. No reported nursing events. Hospitalist Physical - Constitutional Vitals: Temp Pulse Resp BP Pulse Ox 97.8 F 83 11 L 163/97 98 02/27/20 08:00 02/27/20 12:00 02/27/20 12:00 02/27/20 12:00 02/27/20 12:00 General appearance: Present: no acute distress, well-nourished - EENT Eyes: Present: PERRL, EOM intact ENT: hearing intact - Neck Neck: Present: supple - Respiratory Respiratory effort: normal Respiratory: bilateral: CTA - Cardiovascular Rhythm: regular Heart Sounds: Present: S1 & S2 - Abdominal General gastrointestinal: soft, non-tender, non-distended - Integumentary Integumentary: Present: clear - Psychiatric Psychiatric: appropriate mood/affect, cooperative - Neurologic Neurologic: CNII-XII intact Results - Labs CBC & Chem 7: 02/27/20 13:41 02/27/20 05:25 Labs: Laboratory Last Values WBC 5.2 K/mm3 (4.5-11.0) 02/27/20 05:25 RBC 4.92 M/mm3 (3.65-5.03) 02/27/20 05:25 Hgb 15.3 gm/dl (11.8-15.2) H 02/27/20 13:41 Hct 46.0 % (35.5-45.6) H 02/27/20 13:41 MCV 87 fl (84-94) 02/27/20 05:25 MCH 28 pg (28-32) 02/27/20 05:25 MCHC 33 % (32-34) 02/27/20 05:25 RDW 13.6 % (13.2-15.2) 02/27/20 05:25 Plt Count 213 K/mm3 (140-440) 02/27/20 13:41 Lymph % (Auto) 38.0 % (13.4-35.0) H 02/27/20 05:25 [place] % (Auto) 9.8 % (0.0-7.3) H 02/27/20 05:25 Eos % (Auto) 1.3 % (0.0-4.3) 02/27/20 05:25 Baso % (Auto) 0.4 % (0.0-1.8) 02/27/20 05:25 Lymph # (Auto) 2.0 K/mm3 (1.2-5.4) 02/27/20 05:25 [place] # (Auto) 0.5 K/mm3 (0.0-0.8) 02/27/20 05:25 Eos # (Auto) 0.1 K/mm3 (0.0-0.4) 02/27/20 05:25 Baso # (Auto) 0.0 K/mm3 (0.0-0.1) 02/27/20 05:25 Add Manual Diff Complete 02/26/20 20:30 Total Counted 100 02/26/20 20:30 Seg Neutrophils % 50.5 % (40.0-70.0) 02/27/20 05:25 Seg Neuts % (Manual) 78.0 % (40.0-70.0) H 02/26/20 20:30 Band Neutrophils % 0 % 02/26/20 20:30 Lymphocytes % (Manual) 18.0 % (13.4-35.0) 02/26/20 20:30 Reactive Lymphs % (Man) 0 % 02/26/20 20:30 Monocytes % (Manual) 4.0 % (0.0-7.3) 02/26/20 20:30 Eosinophils % (Manual) 0 % (0.0-4.3) 02/26/20 20:30 Basophils % (Manual) 0 % (0.0-1.8) 02/26/20 20:30 Metamyelocytes % 0 % 02/26/20 20:30 Myelocytes % 0 % 02/26/20 20:30 Promyelocytes % 0 % 02/26/20 20:30 Blast Cells % 0 % 02/26/20 20:30 Nucleated RBC % Not Reportable 02/26/20 20:30 Seg Neutrophils # 2.6 K/mm3 (1.8-7.7) 02/27/20 05:25 Seg Neutrophils # Man 6.5 K/mm3 (1.8-7.7) 02/26/20 20:30 Band Neutrophils # 0.0 K/mm3 02/26/20 20:30 Lymphocytes # (Manual) 1.5 K/mm3 (1.2-5.4) 02/26/20 20:30 Abs React Lymphs (Man) 0.0 K/mm3 02/26/20 20:30 Monocytes # (Manual) 0.3 K/mm3 (0.0-0.8) 02/26/20 20:30 Eosinophils # (Manual) 0.0 K/mm3 (0.0-0.4) 02/26/20 20:30 Basophils # (Manual) 0.0 K/mm3 (0.0-0.1) 02/26/20 20:30 Metamyelocytes # 0.0 K/mm3 02/26/20 20:30 Myelocytes # 0.0 K/mm3 02/26/20 20:30 Promyelocytes # 0.0 K/mm3 02/26/20 20:30 Blast Cells # 0.0 K/mm3 02/26/20 20:30 WBC Morphology Not Reportable 02/26/20 20:30 Hypersegmented Neuts Not Reportable 02/26/20 20:30 Hyposegmented Neuts Not Reportable 02/26/20 20:30 Hypogranular Neuts Not Reportable 02/26/20 20:30 Smudge Cells Not Reportable 02/26/20 20:30 Toxic Granulation Not Reportable 02/26/20 20:30 Toxic Vacuolation Not Reportable 02/26/20 20:30 Dohle Bodies Not Reportable 02/26/20 20:30 Pelger-Huet Anomaly Not Reportable 02/26/20 20:30 Rachel Rods Not Reportable 02/26/20 20:30 Platelet Estimate Consistent w auto 02/26/20 20:30 Clumped Platelets Not Reportable 02/26/20 20:30 Plt Clumps, EDTA Not Reportable 02/26/20 20:30 Large Platelets Not Reportable 02/26/20 20:30 Giant Platelets Not Reportable 02/26/20 20:30 Platelet Satelliting Not Reportable 02/26/20 20:30 Plt Morphology Comment Not Reportable 02/26/20 20:30 RBC Morphology Normal 02/26/20 20:30 Dimorphic RBCs Not Reportable 02/26/20 20:30 Polychromasia Not Reportable 02/26/20 20:30 Hypochromasia Not Reportable 02/26/20 20:30 Poikilocytosis Not Reportable 02/26/20 20:30 Anisocytosis Not Reportable 02/26/20 20:30 Microcytosis Not Reportable 02/26/20 20:30 Macrocytosis Not Reportable 02/26/20 20:30 Spherocytes Not Reportable 02/26/20 20:30 Pappenheimer Bodies Not Reportable 02/26/20 20:30 Sickle Cells Not Reportable 02/26/20 20:30 Target Cells Not Reportable 02/26/20 20:30 Tear Drop Cells Not Reportable 02/26/20 20:30 Ovalocytes Not Reportable 02/26/20 20:30 Helmet Cells Not Reportable 02/26/20 20:30 Kahn-Preston Bodies Not Reportable 02/26/20 20:30 [place] Rings Not Reportable 02/26/20 20:30 [place] Cells Not Reportable 02/26/20 20:30 Bite Cells Not Reportable 02/26/20 20:30 Crenated Cell Not Reportable 02/26/20 20:30 Elliptocytes Not Reportable 02/26/20 20:30 Acanthocytes (Spur) Not Reportable 02/26/20 20:30 Rouleaux Not Reportable 02/26/20 20:30 Hemoglobin C Crystals Not Reportable 02/26/20 20:30 Schistocytes Not Reportable 02/26/20 20:30 Malaria parasites Not Reportable 02/26/20 20:30 [place] Bodies Not Reportable 02/26/20 20:30 Hem Pathologist Commnt No 02/26/20 20:30 PT 14.8 Sec. (12.2-14.9) 02/27/20 13:41 INR 1.14 (0.87-1.13) H 02/27/20 13:41 APTT 77.1 Sec. (24.2-36.6) H* 02/27/20 13:41 Fibrinogen 196 mg/dl (211-480) L 02/27/20 05:25 Heparin Anti-Xa Level 0.10 U.I./ml (0.3-0.7) L 02/27/20 05:25 Sodium 137 mmol/L (137-145) 02/27/20 05:25 Potassium 3.9 mmol/L (3.6-5.0) 02/27/20 05:25 Chloride 99.1 mmol/L (98-107) 02/27/20 05:25 Carbon Dioxide 28 mmol/L (22-30) 02/27/20 05:25 Anion Gap 14 mmol/L 02/27/20 05:25 BUN 7 mg/dL (9-20) L 02/27/20 05:25 Creatinine 0.9 mg/dL (0.8-1.3) 02/27/20 05:25 Estimated GFR > 60 ml/min 02/27/20 05:25 BUN/Creatinine Ratio 8 % 02/27/20 05:25 Glucose 224 mg/dL (75-100) H 02/27/20 05:25 POC Glucose 210 mg/dL (70-105) H 02/27/20 05:42 Hemoglobin A1c 11.5 % (4-6) H 02/27/20 05:25 Calcium 8.7 mg/dL (8.4-10.2) 02/27/20 05:25 Blood Type A POSITIVE 02/26/20 12:00 Antibody Screen Negative 02/26/20 12:00 Serrano/IV: Voiding Method Condom Catheter IV Catheter Type [Right Hand] Peripheral IV Active Medications - Current Medications Current Medications: Generic Name Dose Route Start Last Admin Trade Name Freq PRN Reason Stop Dose Admin Acetaminophen 650 mg 02/26/20 13:00 Tylenol PO Q4H PRN Pain MILD(1-3)/Fever >100.5/BARRETT Hydrocodone Bitart/Acetaminophen 2 each 02/26/20 13:00 02/27/20 04:23 [place] 5/325 PO 2 each Q6H PRN Administration Pain, Moderate (4-6) Hydrocodone Bitart/Acetaminophen 1 each 02/26/20 13:00 [place] 5/325 PO Q6H PRN Pain, Mild (1-3) Cilostazol 100 mg 02/27/20 11:00 02/27/20 12:04 Pletal PO 100 mg BID CHAS Administration Clopidogrel Bisulfate 75 mg 02/28/20 11:00 Plavix PO QDAY CHAS Dextrose 0 ml 02/26/20 23:13 D50w (25gm) Syringe IV Q30MIN PRN Hypoglycemia Protocol Diphenhydramine HCl 25 mg 02/26/20 16:30 02/26/20 23:52 Benadryl IV 25 mg Q4H PRN Administration Itching Docusate Sodium 100 mg 02/26/20 13:00 02/27/20 10:49 Colace PO 100 mg BID CHAS Administration Gabapentin 600 mg 02/26/20 14:00 Gabapentin PO TID PRN Pain , Severe (7-10) Hydralazine HCl 20 mg 02/27/20 12:19 Apresoline IV Q8HR PRN Hypertension Hydromorphone HCl 0.5 mg 02/26/20 13:00 02/26/20 23:52 Dilaudid IV 0.5 mg Q3H PRN Administration Pain , Severe (7-10) Sodium Chloride 500 mls @ 50 mls/hr 02/26/20 10:00 02/26/20 10:04 Nacl 0.9% 500 Ml IV 50 mls/hr DIRECT CHAS Administration Sodium Chloride 1,000 mls @ 30 mls/hr 02/26/20 12:15 Nacl 0.9% 1000 Ml IV DIRECT CHAS Heparin Sodium/Sodium Chloride 25,000 unit in 500 mls @ 30 mls/hr 02/27/20 11:00 02/27/20 10:47 Heparin/ 0.45% Nacl-25,000 Unit/500 Ml IV 1,500 units/hr TITR CHAS 30 mls/hr Administration Protocol 1,500 UNITS/HR Insulin Human Lispro 0 unit 02/27/20 00:41 02/27/20 12:22 Humalog SUB-Q 1 unit ACHS CHAS Administration Protocol Morphine Sulfate 2 mg 02/26/20 13:00 Morphine IV Q4H PRN Pain, Moderate (4-6) Ondansetron HCl 4 mg 02/26/20 13:00 Zofran IV Q8H PRN Nausea Pantoprazole Sodium 20 mg 02/26/20 13:00 02/27/20 10:49 Protonix PO 20 mg QDAY CHAS Administration Sodium Chloride 10 ml 02/26/20 13:00 02/27/20 10:51 Sodium Chloride Flush Syringe 10 Ml IV 10 ml BID CHAS Administration Sodium Chloride 10 ml 02/26/20 12:23 Sodium Chloride Flush Syringe 10 Ml IV PRN PRN LINE FLUSH
[2020-02-28 06:30] LABS: BUN/Creatinine Ratio 8; Blood Urea Nitrogen 6 mg/dL (9-20); Calcium 9.1 mg/dL (8.4-10.2); Hemolysis Index 11
[2020-02-28] MEDS: INSULIN LISPRO 100 UNIT/ML VIAL 3 mL SUB-Q SCH ×2 (08:02→12:17)
[2020-02-28] MEDS: DOCUSATE SODIUM 100 MG CAP PO SCH (09:28)
[2020-02-28] MEDS: PANTOPRAZOLE 20 MG TAB PO SCH (09:28)
[2020-02-28] MEDS: CILOSTAZOL 100 MG TAB PO SCH (09:28)
[2020-02-28] MEDS ORDERED: CLOPIDOGREL 75 MG TAB PO SCH (11:00)
--- NOTE | 2020-02-28 11:40 | Progress Note ---
Assessment and Plan The patient is status post thrombolysis of right femoral to tibioperoneal bypass graft. He has no complaints of pain at this time. He has palpable tibial pulses. He is still on his heparin drip however that will be stopped after he is given a dose of Eliquis 5 mg. He will be transition from Eliquis 2.5 mg p.o. twice daily to Eliquis 5 mg p.o. twice daily. His [place] will also be removed. If he is able to ambulate without difficulty he will be able to be discharged later today. He and his have been given the discharge instructions and have expressed understanding and agree with the plan. Subjective Date of service: 02/28/20 Principal diagnosis: Arterial thrombosis Interval history: The patient has no complaints at this time. Objective - Constitutional Vitals: Vital Signs - 12hr 02/28/20 02/28/20 02/28/20 00:00 00:30 01:00 Temperature 99.4 F Pulse Rate 75 78 78 Pulse Rate [ 76 From Monitor] Respiratory 22 18 20 Rate Blood Pressure 124/75 124/75 121/72 O2 Sat by Pulse 97 97 95 Oximetry 02/28/20 02/28/20 02/28/20 01:30 02:00 02:30 Temperature Pulse Rate 88 96 H 88 Pulse Rate [ From Monitor] Respiratory 18 21 24 Rate Blood Pressure 121/72 115/83 115/83 O2 Sat by Pulse 95 95 97 Oximetry 02/28/20 02/28/20 02/28/20 03:00 03:30 04:00 Temperature 98.5 F Pulse Rate 75 74 68 Pulse Rate [ 68 From Monitor] Respiratory 20 19 20 Rate Blood Pressure 130/74 130/74 138/77 O2 Sat by Pulse 98 97 97 Oximetry 02/28/20 02/28/20 02/28/20 04:05 04:30 05:00 Temperature 98.5 F Pulse Rate 71 77 Pulse Rate [ From Monitor] Respiratory 19 18 Rate Blood Pressure 138/77 139/76 O2 Sat by Pulse 98 97 Oximetry 02/28/20 02/28/20 02/28/20 05:30 06:00 06:30 Temperature Pulse Rate 71 66 83 Pulse Rate [ From Monitor] Respiratory 18 18 18 Rate Blood Pressure 139/76 138/82 138/82 O2 Sat by Pulse 97 95 97 Oximetry 02/28/20 02/28/20 02/28/20 07:00 07:30 08:00 Temperature 98.1 F Pulse Rate 99 H 75 94 H Pulse Rate [ 88 From Monitor] Respiratory 19 18 18 Rate Blood Pressure 150/95 138/82 138/82 O2 Sat by Pulse 97 98 98 Oximetry 02/28/20 02/28/20 02/28/20 08:30 09:00 09:30 Temperature Pulse Rate 87 81 91 H Pulse Rate [ From Monitor] Respiratory 20 23 14 Rate Blood Pressure 159/96 148/81 148/81 O2 Sat by Pulse 97 95 99 Oximetry 02/28/20 02/28/20 02/28/20 10:00 10:30 11:00 Temperature Pulse Rate 85 85 84 Pulse Rate [ From Monitor] Respiratory 19 12 19 Rate Blood Pressure 149/86 149/86 149/86 O2 Sat by Pulse 96 99 99 Oximetry General appearance: Present: no acute distress - Cardiovascular Rhythm: regular Extremities: pulses intact (Palpable dorsalis pedis and posterior tibial pulses bilaterally.) Extremity abnormal: other (Left groin is without evidence of hematoma) - Labs CBC & Chem 7: 02/27/20 13:41 02/28/20 05:06 Labs: Abnormal lab results 02/27/20 02/27/20 02/27/20 Range/Units 12:35 13:41 13:41 Hgb 15.3 H (11.8-15.2) gm/dl Hct 46.0 H (35.5-45.6) % INR 1.14 H (0.87-1.13) APTT 77.1 H* (24.2-36.6) Sec. BUN (9-20) mg/dL Glucose (75-100) mg/dL POC Glucose 183 H (70-105) mg/dL 02/27/20 02/27/20 02/28/20 Range/Units 17:01 21:29 05:06 Hgb (11.8-15.2) gm/dl Hct (35.5-45.6) % INR (0.87-1.13) APTT (24.2-36.6) Sec. BUN 6 L (9-20) mg/dL Glucose 212 H (75-100) mg/dL POC Glucose 224 H 280 H (70-105) mg/dL Medications & Allergies - Medications Allergies/Adverse Reactions: Allergies No Known Allergies Allergy (Unverified 02/26/20 08:13) Home Medications: Home Medications Medication Instructions Recorded Confirmed Last Taken Type Apixaban [Eliquis] 2.5 mg PO BID 02/26/20 02/26/20 02/23/20 History 2.5mg Celecoxib [celeBREX] 200 mg PO BID 02/26/20 02/26/20 01/26/20 History 200 mg Clopidogrel [Plavix] 75 mg PO QDAY 02/26/20 02/26/20 02/26/20 06:30 History Gabapentin [Neurontin] 1 tab PO TID PRN 02/26/20 02/26/20 01/27/20 History 600 mg Pantoprazole [Protonix TAB] 20 mg QDAY 02/26/20 02/26/20 02/26/20 06:30 History traMADoL [Ultram] 100 mg PO TID PRN 02/26/20 02/26/20 01/26/20 History 100 mg Apixaban [Eliquis] 5 mg PO BID #60 tablet 02/27/20 Unknown Rx Insulin NPH Hum/Reg Insulin Hm 8 unit SQ TIDAC #1 insuln.pen 02/27/20 Unknown Rx [Novolin 70-30 Flexpen] cilostazoL [Pletal] 100 mg PO BID #60 tablet 02/27/20 Unknown Rx Active Medications: Generic Name Dose Route Start Last Admin Trade Name Freq PRN Reason Stop Dose Admin Acetaminophen 650 mg 02/26/20 13:00 Tylenol PO Q4H PRN Pain MILD(1-3)/Fever >100.5/BARRETT Hydrocodone Bitart/Acetaminophen 2 each 02/26/20 13:00 02/27/20 04:23 [place] 5/325 PO 2 each Q6H PRN Administration Pain, Moderate (4-6) Hydrocodone Bitart/Acetaminophen 1 each 02/26/20 13:00 [place] 5/325 PO Q6H PRN Pain, Mild (1-3) Apixaban 5 mg 02/28/20 11:30 Eliquis PO Q12HR CHAS Protocol Cilostazol 100 mg 02/27/20 11:00 02/28/20 09:28 Pletal PO 100 mg BID CHAS Administration Clopidogrel Bisulfate 75 mg 02/28/20 11:00 02/28/20 10:08 Plavix PO 75 mg QDAY CHAS Administration Dextrose 0 ml 02/26/20 23:13 D50w (25gm) Syringe IV Q30MIN PRN Hypoglycemia Protocol Diphenhydramine HCl 25 mg 02/26/20 16:30 02/26/20 23:52 Benadryl IV 25 mg Q4H PRN Administration Itching Docusate Sodium 100 mg 02/26/20 13:00 02/28/20 09:28 Colace PO 100 mg BID CHAS Administration Gabapentin 600 mg 02/26/20 14:00 Gabapentin PO TID PRN Pain , Severe (7-10) Hydralazine HCl 20 mg 02/27/20 12:19 Apresoline IV Q8HR PRN Hypertension Hydromorphone HCl 0.5 mg 02/26/20 13:00 02/26/20 23:52 Dilaudid IV 0.5 mg Q3H PRN Administration Pain , Severe (7-10) Sodium Chloride 500 mls @ 50 mls/hr 02/26/20 10:00 02/26/20 10:04 Nacl 0.9% 500 Ml IV 50 mls/hr DIRECT CHAS Administration Sodium Chloride 1,000 mls @ 30 mls/hr 02/26/20 12:15 Nacl 0.9% 1000 Ml IV DIRECT CHAS Heparin Sodium/Sodium Chloride 25,000 unit in 500 mls @ 30 mls/hr 02/27/20 11:00 02/27/20 20:45 Heparin/ 0.45% Nacl-25,000 Unit/500 Ml IV 1,500 units/hr TITR CHAS 30 mls/hr Titration Protocol 1,500 UNITS/HR Insulin Human Lispro 0 unit 02/27/20 00:41 02/28/20 08:02 Humalog SUB-Q 2 unit ACHS CHAS Administration Protocol Morphine Sulfate 2 mg 02/26/20 13:00 02/27/20 18:43 Morphine IV 2 mg Q4H PRN Administration Pain, Moderate (4-6) Ondansetron HCl 4 mg 02/26/20 13:00 Zofran IV Q8H PRN Nausea Pantoprazole Sodium 20 mg 02/26/20 13:00 02/28/20 09:28 Protonix PO 20 mg QDAY CHAS Administration Sodium Chloride 10 ml 02/26/20 13:00 02/28/20 09:29 Sodium Chloride Flush Syringe 10 Ml IV 10 ml BID CHAS Administration Sodium Chloride 10 ml 02/26/20 12:23 Sodium Chloride Flush Syringe 10 Ml IV PRN PRN LINE FLUSH
[2020-02-28 14:21] VITALS: BP 156/86
[2020-02-28] MEDS ORDERED: APIXABAN 5 MG TAB PO SCH (14:40)
== END 2020-02-28 15:25 | disposition home or self-care (01) | DRG 253 ==
LOC: CATHLABREC 08:32 → CC1 12:23 → IMCU 02-27 18:11
PROVIDERS: ADMIT Radiology Diagnostic Radiology; ATTEND Radiology Diagnostic Radiology
PROC: 3E05317 Introduction of Other Thrombolytic into Peripheral Artery, Percutaneous Approach (ICD-10-PCS; 2020-02-26)
PROC: 04HT33Z Insertion of Infusion Device into Right Peroneal Artery, Percutaneous Approach (ICD-10-PCS; 2020-02-26)
PROC: B41D1ZZ Fluoroscopy of Aorta and Bilateral Lower Extremity Arteries using Low Osmolar Contrast (ICD-10-PCS; 2020-02-26)
PROC: 047K3ZZ Dilation of Right Femoral Artery, Percutaneous Approach (ICD-10-PCS; principal; 2020-02-27)
PROC: 047M3ZZ Dilation of Right Popliteal Artery, Percutaneous Approach (ICD-10-PCS; 2020-02-27)
PROC: B41D1ZZ Fluoroscopy of Aorta and Bilateral Lower Extremity Arteries using Low Osmolar Contrast (ICD-10-PCS; 2020-02-27)
PROC: 06PY33Z Removal of Infusion Device from Lower Vein, Percutaneous Approach (ICD-10-PCS; 2020-02-27)
DX: T82.868A Thrombosis due to vascular prosthetic devices, implants and grafts, initial encounter (principal); I74.3 Embolism and thrombosis of arteries of the lower extremities; Y83.2 Surgical operation with anastomosis, bypass or graft as the cause of abnormal reaction of the patient, or of later complication, without mention of misadventure at the time of the procedure; K21.9 Gastro-esophageal reflux disease without esophagitis; E66.9 Obesity, unspecified; Y92.098 Other place in other non-institutional residence as the place of occurrence of the external cause; Z79.01 Long term (current) use of anticoagulants; Z68.35 Body mass index [BMI] 35.0-35.9, adult; Z82.49 Family history of ischemic heart disease and other diseases of the circulatory system
CPT/HCPCS: 36415; 37211; 37214; 37224; 37228; 75625; 75710; 76937; 80048; 82962; 83036; 85007; 85014; 85018; 85025; 85049; 85384; 85520; 85610; 85730; 86850; 86900; 86901; 96365; 96366; 96368; 96374; 96375; 96376; G0378; C1725; C1757; C1760; C1769; C1884; C1887; C2623; J0360; J0690; J1170; J1200; J1644; J2250; J2270; J2997; J3010; J7030; J7040; J7050; Q9967